=== PATIENT | female | born 1990 | race Caucasian/White ===

== ENCOUNTER 2016-12-12 12:05 | Inpatient (IN) | payer OTHER ==
--- NOTE | ~2016-12-12 | PN ---
Unit #: [id number] #: [id number] Patient: RICHY SPARKS [id number] [facility] [address] [place] [address] [id number] MR#: [id number] NAME: RICHY SPARKS ROOM: [facility] Age: 26 Sex: F Admission Date: 12/12/2016 : 1990 Attending Physician: Michael Stewart M.D. Admitting Physician: Michael Stewart M.D. Primary Care Physician: Primary Care Physician [place] HERRING PROGRESS NOTES DATE 12/16/2016 DISCUSSION The patient seems a bit brighter today and is reporting improved sleep but wishes to continue upper titration of Seroquel. She is complaining of some nausea today and I will add p.jeronimo Lanier. Dictated by... Michael Stewart M.D. CB/juana TD: 12/16/2016 22:59 JOB #: [id number] [facility] PROGRESS NOTES Page 1 of 1 X Michael Stewart MD PROGRESS NOTE
--- NOTE | ~2016-12-12 | DS ---
Unit #: [id number] #: [id number] Patient: RICHY SPARKS [id number] [facility] [address] [place] [address] [id number] MR#: [id number] NAME: RICHY SPARKS ROOM: P123 Age: 26 Sex: F Admission Date: 12/12/2016 : 1990 Discharge Date: 12/20/2016 Attending Physician: Michael Stewart M.D. Primary Care Physician: Primary Care Physician No DISCHARGE SUMMARY REASON FOR ADMISSION The patient is a 26-year-old white female with a history of methamphetamine abuse, admitted with recurrence of auditory hallucinations. HOSPITAL COURSE The patient was admitted to the [address] [place] [address] unit and placed on suicide precautions. She was continued on previously prescribed medications including Wellbutrin, Abilify, BuSpar, aspirin, and metoprolol. The patient's Abilify was eventually discontinued and the patient just begun on Seroquel which was titrated to a final dose of 400 mg at bedtime. The patient seemed to tolerate this medication change well and showed brightening of mood and reduction in auditory hallucinations. By 12/20/2016, arrangements have been made for the patient to go to the [facility] in [place], [place] and discharge was ordered. FINAL DIAGNOSES Psychiatric: Psychotic disorder, unspecified; methamphetamine use disorder by history; opioid use disorder by history; hepatitis C; history of endocarditis; history of mitral and tricuspid valve replacement. DISPOSITION ON DISCHARGE The patient is discharged on the following medications: BuSpar 15 mg t.i.d. for anxiety, aspirin 325 mg once daily for anticoagulation, Lopressor 12.5 mg once daily for hypertension, Seroquel 400 mg at bedtime for mood stabilization, Motrin 600 mg q.6 hours p.r.n. pain, and Wellbutrin XL 300 mg q.a.m. for depression. DISCHARGE INSTRUCTIONS No dietary or physical restrictions were placed upon the patient at the time of discharge. FOLLOWUP Followup will take place through the auspices of community mental health resources. PROGNOSIS The patient's prognosis is considered fair. As noted previously, she will be transported to "[facility]" on 12/20/2016. Dictated by... Michael Stewart M.D. Unit #: [id number] #: [id number] Patient: RICHY SPARKS ANATOLIY/silver TD: 12/19/2016 19:19 JOB #: [id number] DISCHARGE SUMMARY Page 1 of 1 X Michael Stewart MD X DISCHARGE SUMMARY
--- NOTE | ~2016-12-12 | PN ---
Unit #: [id number] #: [id number] Patient: RICHY SPARKS [id number] [facility] [address] [place] [address] [id number] MR#: [id number] NAME: RICHY SPARKS ROOM: [facility] Age: 26 Sex: F Admission Date: 12/12/2016 : 1990 Attending Physician: Michael Stewart M.D. Admitting Physician: Michael Stewart M.D. Primary Care Physician: Primary Care Physician Selma HERRING PROGRESS NOTES DATE 12/15/2016 DISCUSSION The patient reports ongoing suicidal ideation and increased anxiety. I plan to discontinue Abilify which does not appear to have working for the patient and we will begin upper titration of Seroquel as the patient is complaining of poor sleep. Dictated by... Michael Stewart M.D. CB/juana TD: 12/16/2016 03:48 JOB #: [id number] [facility] PROGRESS NOTES Page 1 of 1 X Michael Stewart MD PROGRESS NOTE
--- NOTE | ~2016-12-12 | PN ---
Unit #: [id number] #: [id number] Patient: RICHY SPARKS [id number] [facility] [address] [place] [address] [id number] I MR#: [id number] NAME: RICHY SPARKS ROOM: [facility] Age: 26 Sex: F Admission Date: 12/12/2016 : 1990 Attending Physician: Michael Stewart M.D. Admitting Physician: Michael Stewart M.D. Primary Care Physician: Primary Care Physician [place] HERRING PROGRESS NOTES DATE 12/14/2016 DISCUSSION The patient reports no new issues during today's interview. She has been compliant with medications reporting some reduction in suicidal ideation. Dictated by... Michael Stewart M.D. CB/jeana TD: 12/14/2016 14:31 JOB #: [id number] [facility] PROGRESS NOTES Page 1 of 1 X Michael Stewart MD X PROGRESS NOTE
--- NOTE | ~2016-12-12 | PN ---
Unit #: [id number] #: [id number] Patient: RICHY SPARKS [id number] [facility] [address] [place] [address] [id number] I MR#: [id number] NAME: RICHY SPARKS ROOM: [facility] Age: 26 Sex: F Admission Date: 12/12/2016 : 1990 Attending Physician: Michael Stewart M.D. Admitting Physician: Michael Stewart M.D. Primary Care Physician: Primary Care Physician [place] HERRING PROGRESS NOTES DATE 12/18/2016 DISCUSSION The patient reports ongoing auditory hallucinations and required a p.r.n. dose of Seroquel yesterday. Upward titration of this medication will continue as the patient continues to appear fretful and dysphoric related to her auditory hallucinations. I will also increase her Zofran to 8 mg q. 6 hours given her complaints of ongoing nausea and vomiting. Dictated by... Michael Stewart M.D. CB/shaista TD: 12/18/2016 21:12 JOB #: [id number] [facility] PROGRESS NOTES Page 1 of 1 X Michael Stewart MD PROGRESS NOTE
--- NOTE | ~2016-12-12 | PN ---
Unit #: [id number] #: [id number] Patient: RICHY SPARKS [id number] [facility] [address] [place] [address] [id number] MR#: [id number] NAME: RICHY SPARKS ROOM: [facility] Age: 26 Sex: F Admission Date: 12/12/2016 : 1990 Attending Physician: Michael Stewart M.D. Admitting Physician: Michael Stewart M.D. Primary Care Physician: Primary Care Physician [place] HERRING PROGRESS NOTES DATE 12/17/2016 DISCUSSION The patient seems brighter today. She is reporting some ongoing pain in her shoulders and I will add p.rcindy Hearn. The patient reports that she is working on referral to " [facility]" related to a history of substance abuse though she has been abstinence for some time. Dictated by... Michael Stewart M.D. CB/juana TD: 12/17/2016 20:17 JOB #: [id number] [facility] PROGRESS NOTES Page 1 of 1 X Michael Stewart MD PROGRESS NOTE
--- NOTE | ~2016-12-12 | CO ---
Unit #: [id number] #: [id number] Patient: RICHY SPARKS [id number] [place] [address] [id number] MR#: [id number] NAME: RICHY SPARKS ROOM: [facility] Age: 26 Sex: F Admission Date: 12/12/2016 : 1990 Attending Physician: Michael Stewart M.D. Consultation Date: 12/15/2016 CONSULTATION REPORT ORDERING PROVIDER Dr. Stewart. REASON FOR CONSULT Abnormal UA. SUBJECTIVE The patient denies any signs and symptoms of urinary tract infection. No dysuria, no hematuria. No urinary hesitancy or frequency. OBJECTIVE Urinalysis shows nitrite positive with 4+ bacteria. ASSESSMENT Urinary tract infection. PLAN Do Augmentin for 3 days. ADDENDUM A repeat urinalysis was done by nursing, which came back without nitrites or bacteria. After repeat UA, because the patient is not having any symptoms, the antibiotic was discontinued. Dictated by... Maria G Springer/silver TD: 12/16/2016 02:30 JOB #: [id number] CONSULTATION REPORT Page 1 of 1 X SY EVANS APRN CONSULTATION REPORT
--- NOTE | ~2016-12-12 | PA ---
Unit #: [id number] #: [id number] Patient: RICHY SPARKS [id number] [facility] [address] [place] [address] [id number] MR#: [id number] NAME: RICHY SPARKS ROOM: P123 Age: 26 Sex: F Admission Date: 12/12/2016 : 1990 Date of Assessment: 12/13/2016 Attending Physician: Michael Stewart M.D. Admitting Physician: Michael Stewart M.D. Primary Care Physician: Primary Care Physician No PSYCHIATRIC ASSESSMENT IDENTIFYING INFORMATION The patient is a 26-year-old white female admitted to the [address] [place] [address] after presenting to this facility voicing positive suicidal ideation. INFORMANT(S) Patient. RELIABILITY Fair. CHIEF COMPLAINT Tried to kill myself. HISTORY OF PRESENT ILLNESS The patient is a 26-year-old single white female admitted to the [address] [place] [address] after she had been brought to this facility by her father yesterday. The patient reports that she has made 3 separate suicide attempts in the past month without specific precipitant. The patient states that she "wants to live in [place] near her son's father." The patient report that she is presently staying with a friend but is essentially homeless. She had recently taken an overdose of baclofen. She also has recent overdoses of gabapentin and amitriptyline. The patient reports that she has multiple life stressors. She is status post open heart surgery and pacemaker placement secondary to a history of bacterial endocarditis which she sustained while abusing intravenous heroin in her early 20's. Patient reports previous psychiatric hospitalizations but states that these take place at the ages of 10 and 12. She is currently prescribed psychotropic medications through the auspices of community mental health resources and these include Wellbutrin SR, gabapentin, Abilify, amitriptyline and BuSpar. When seen today, the patient continues to endorse positive suicidal ideation though she does not appear to be particularly dysphoric and speaks of her future orientation when referring to her wish to live close to her son's father in [place]. She denies current abuse of psychoactive substances stating "I've been clean for a year." She denies recent changes in sleep or appetite. PAST PSYCHIATRIC HISTORY As above. FAMILY HISTORY Noncontributory. SOCIAL HISTORY Unit #: [id number] #: [id number] Patient: RICHY SPARKS The patient lives with a friend. She is the mother of a 5-year-old out of wedlock child of whom she does not have custody. She reports substance use as noted previously. MEDICAL HISTORY Significant for the aforementioned heart issues. MEDICATION HISTORY 1. Metoprolol. 2. Aspirin. 3. Buspirone. 4. Amitriptyline. 5. Baclofen. 6. Abilify. 7. Gabapentin. 8. Wellbutrin. ALLERGIES None. MENTAL STATUS EXAM At this time, reveals the patient to be an obese white female appearing her stated age. She is in no apparent physical distress at time of examination. She is awake, alert and oriented in all spheres. Her mood is mildly dysphoric. Her affect constricted. Speech is generally relevant and coherent. There are no gross deficits in memory or cognition noted. Intelligence is judged to be in the average range based on fund of knowledge. The patient is cooperative throughout the interview. She is currently endorsing positive suicidal ideation. She denies homicidal ideation. She denies any psychotic symptoms. Her judgement and insight appear to be reasonably intact. ASSETS AND LIABILITIES Patient's assets to be assessed. Liabilities, lack of resources. ADMITTING DIAGNOSES 1. Major depressive disorder, recurrent, moderate. 2. Borderline personality traits versus disorder. 3. History of bacterial endocarditis with valve replacement and pacemaker placement. 4. Hypertension. PSYCHIATRIC PLAN/TREATMENT GOALS The patient remains hospitalized for safety and stabilization. We will continue previously prescribed Wellbutrin, Abilify, BuSpar, aspirin and metoprolol. Gabapentin, baclofen and amitriptyline will be discontinued given the potentiality an overdose as it is the feeling of this physician that the patient has issues with impulse control which makes these medications unsafe for her. By the same token, I will start her on Seroquel 50 mg at h.s. given her complaints of poor sleep and need for mood stabilization and will look to titrate this medication upward. ESTIMATED LENGTH OF STAY Five to seven days. Unit #: [id number] #: [id number] Patient: RICHY SPARKS Dictated by... Michael Stewart M.D. ANATOLIY/shaista TD: 12/13/2016 16:11 JOB #: [id number] PSYCHIATRIC ASSESSMENT Page 1 of 1 X Michael Stewart MD PSYCHIATRIC ASSESSMENT
--- NOTE | ~2016-12-12 | HP ---
Unit #: [id number] #: [id number] Patient: CAIT SPARKS [id number] [place] [address] [id number] MR#: [id number] NAME: CAIT SPARKS ROOM: P123 Age: 26 Sex: F Admission Date: 12/12/2016 : 1990 Attending Physician: Michael Stewart M.D. Admitting Physician: Michael Stewrat M.D. Primary Care Physician: Primary Care Physician No HISTORY AND PHYSICAL HISTORY OF PRESENT ILLNESS Cait is a 26 year old admitted to [address] [place] [address] with depression and verbalizing wanting to hurt herself. PAST MEDICAL HISTORY 1. History of IV drug use to include methamphetamine and heroin. She has been clean and sober for 2 years. 2. Hepatitis C. 3. Obesity. 4. History of endocarditis. PAST SURGICAL HISTORY 1. Mitral and tricuspid valve replaced, 2015. 2. Cholecystectomy. 3. T and A. 4. Pacemaker placed. ALLERGIES No known drug allergies. SOCIAL HISTORY She does not smoke or drink alcohol. Has a past history of IV drug use. FAMILY HISTORY Medically noncontributory. REVIEW OF SYSTEMS CONSTITUTIONAL: No fever or chills. HEENT: Denies any sore throat, ear pain or runny nose. CARDIOVASCULAR: Denies chest pain, irregular heart rhythm or palpitations. CHEST: Denies shortness of breath or cough. No hemoptysis. GASTROINTESTINAL: Denies nausea, vomiting, diarrhea or chronic constipation. ENDOCRINE: Denies history of increased thirst or urination. No recent significant weight loss or gain. GENITOURINARY: Denies dysuria, frequency, or hematuria. SKIN: Denies any rashes. HEMATOLOGIC: Denies history of increased bleeding or bruising. MUSCULOSKELETAL: Denies any hot, swollen joints. No generalized muscle pain. NEUROLOGIC: Denies problems with vision or speech. No frequent, severe headaches. No numbness, tingling or weakness in any extremities. Denies loss of bladder or bowel control. Unit #: [id number] #: [id number] Patient: CAIT SPARKS CURRENT MEDICATIONS 1. Zyban SR 150 mg b.i.d. 2. BuSpar 15 mg t.i.d. 3. Melatonin p.r.n. 4. Milk of Magnesia p.r.n. 5. Maalox p.r.n. 6. Tylenol p.r.n. 7. Nicotine patch 14 mg daily. 8. Lopressor 12.5 mg daily. 9. Aspirin 325 mg daily. 10. Abilify 10 mg daily. PHYSICAL EXAMINATION GENERAL: Alert, obese, in no apparent distress. VITAL SIGNS: Blood pressure 120/84, heart rate 80, respirations 16, temperature 98.6. WEIGHT: 180. HEIGHT: 5 feet 5 inches. SKIN: Warm and dry without rash or lesion. HEENT: Normocephalic. TMs not viewed. Oral and nasal passages clear. Conjunctivae clear. PERRLA. EOMs intact. NECK: Supple without lymphadenopathy or thyromegaly. HEART: Rate and rhythm is regular with a 3/6 systolic murmur and ? S4. LUNGS: Clear. ABDOMEN: Soft, nontender. : Not done. EXTREMITIES: No evidence of cyanosis, clubbing or edema. Moves all without focal deficit. NEUROLOGICAL: Grossly within normal limits. Cranial Nerves: II: Visual abbasi are intact. III, IV AND : Extraocular movements are intact. Pupils are equal, round and reactive to light. V: Facial sensation is grossly normal. VII: Facial movements and expression are normal. VIII: Auditory acuity grossly intact. IX, X: Uvula is midline. Phonation is normal. XI: Patient shrugs shoulders and turns head normally. XII: Tongue protrudes in the midline. Sensory and Motor Function: Sensory and motor sensation is grossly normal. Motor: moves all extremities well. Coordination: Gait is normal. Deep Tendon Reflexes: Intact. IMPRESSION Psychiatric admission. RECOMMENDATIONS PSYCHIATRIC: Per psychiatrist. MEDICAL: See no contraindications to participate in facility's activities. MEDICAL PROGNOSIS Good. MEDICAL CONDITION Stable. Dictated by... Unit #: [id number] #: [id number] Patient: CAIT SPARKS Alphonse Pickering-Kinza. for Nate Hein/shaista TD: 12/12/2016 19:11 JOB #: [id number] HISTORY AND PHYSICAL Page 1 of 1 X Sachi Smith HISTORY AND PHYSICAL
[~2016-12-12 12:05] MED LIST: BACTRIM DS TABL1 TA1 PO; NO MEDICATIONS
[2016-12-13 09:41] LABS: BASOPHIL% 0.4 % (0-2.5); EOSINOPHIL# 0.3 X10e3 (0-0.7); EOSINOPHIL% 2.5 % (0.0-7.0); HEMATOCRIT 41.4 % (35.0-45.0); HEMOGLOBIN 13.7 gm/dL (12.0-16.0); LYMPHOCYTE# 2.6 X10e3 (1.0-3.5); LYMPHOCYTE% 22.7 % (17.0-45.0); MEAN CELL VOLUME 92.1 FL (83-96); MEAN CORPUSCULAR HEMOGLOBIN 30.6 PG (28-34); MEAN CORPUSCULAR HGB CONC 33.2 g/dL (30-36); MEAN PLATELET VOLUME 8.7 FL (6.5-11.5); MONOCYTE# 0.6 X10e3 (0-1.0); MONOCYTE% 4.9 % (3.0-12.0); NEUTROPHIL# 7.9 X10e3 (1.5-7.1); NEUTROPHIL% 69.5 % (40-75); PLATELET COUNT 232 X10e3 (140-420); RED BLOOD COUNT 4.49 X10e (3.90-5.30); RED CELL DISTRIBUTION WIDTH 14.2 % (11.0-15.5); WHITE BLOOD COUNT 11.3 X10e3 (4.0-10.5)
[2016-12-13 09:42] LABS: DIFF IND NO
[2016-12-13 09:50] LABS: URINE APPEARANCE CLOUDY; URINE BILIRUBIN NEG (NEG); URINE BLOOD NEG (NEG); URINE COLOR YELLOW; URINE GLUCOSE NEG (NEG); URINE KETONE NEG (NEG); URINE LEUKOCYTE ESTERASE NEG (NEG); URINE NITRATE POS (NEG); URINE PROTEIN NEG (NEG); URINE SPECIFIC GRAVITY 1.025 (1.003-1.035)
[2016-12-13 09:55] LABS: URBCS1 AUWI 0-2 /[HPF] (0-2); URINE BACTERIA AUWI 4+ (NEGATIVE); URINE SQUAMOUS EPITHELIAL CELL NONE SEEN /[HPF]
[2016-12-13 10:56] LABS: AMPHETAMINE NEG (NEG); BARBITURATES NEG (NEG); BENZODIAZEPINES NEG (NEG); COCAINE NEG (NEG); MARIJUANA NEG (NEG); OPIATES NEG (NEG); TRICYCLIC ANTIDEPRESSANTS POS (NEG); U METHADONE NEG (NEG)
[2016-12-13 13:00] LABS: ALBUMIN SERUM 3.8 g/dL (3.5-5.0); BILIRUBIN,TOTAL 1.1 mg/dL (0.2-2.0); BUN/CREATININE RATIO 17.5; CALCIUM SERUM 9.1 mg/dL (8.4-10.2); CREATININE SERUM 0.8 mg/dL (0.6-1.4); GLOM FILT RATE Estimated 101.1 mL/min (>60); POTASSIUM 4.5 mmol/L (3.5-5.1); PROTEIN TOTAL SERUM 7.1 g/dL (6.0-8.3)
[2016-12-15 15:17] LABS: URINE SOURCE CLEAN CATCH
[2016-12-15 15:35] LABS: URINE APPEARANCE CLEAR; URINE BILIRUBIN NEG (NEG); URINE BLOOD NEG (NEG); URINE COLOR YELLOW; URINE GLUCOSE NEG (NEG); URINE KETONE NEG (NEG); URINE LEUKOCYTE ESTERASE NEG (NEG); URINE NITRATE NEG (NEG); URINE PROTEIN NEG (NEG); URINE SPECIFIC GRAVITY 1.003 (1.003-1.035); URINE UROBILINOGEN 0.2 MG/DL (NEG)
[2016-12-15 15:49] LABS: CULTURE INDICATED? NO
== END 2016-12-20 08:30 | disposition other institution (70) | DRG 885 ==
LOC: P1S 13:58
PROVIDERS: Family Medicine; Specialist
DX: F33.1 Major depressive disorder, recurrent, moderate (principal); R45.851 Suicidal ideations; N39.0 Urinary tract infection, site not specified; F60.3 Borderline personality disorder; Z95.2 Presence of prosthetic heart valve; Z95.0 Presence of cardiac pacemaker; B19.20 Unspecified viral hepatitis C without hepatic coma; Z79.82 Long term (current) use of aspirin
CPT/HCPCS: 80053; 80307; 81003; 85025